=== PATIENT | female | born 1975 | race Caucasian/White ===

== ENCOUNTER 2017-07-17 13:30 | Outpatient (CLI) | payer OTHER ==
--- NOTE | 2017-07-17 15:29 | MMO ---
BILATERAL SCREENING MAMMOGRAMS: This is a baseline study. Interpreted with computer-aided detection. Heterogeneously dense glandular pattern is seen. There are a few scattered tiny punctate calcificat ions. No mass or distortion. Recommend 1-year followup. IMPRESSION: BIRADS 2: Benign Finding(s) Routine annual screening mammography (for women over age 40) POS: [facility]
== END 2017-07-17 13:31 | disposition home or self-care (01) ==
LOC: SCSMAMMO 13:30
PROVIDERS: ATTEND Family Medicine
DX: Z12.31 Encounter for screening mammogram for malignant neoplasm of breast (principal)
CPT/HCPCS: 77067; G0202

== ENCOUNTER 2018-11-24 09:54 | Outpatient (CLI) | payer OTHER ==
--- NOTE | 2018-11-24 12:12 | MMO ---
BILATERAL SCREENING MAMMOGRAM: Date: 11/24/18 INDICATION: Annual exam. COMPARISON: Prior exam dated 07/17/17. FINDINGS: Interpretation of this exam was assisted with computer-aided detection. The breast parenchyma is heterogeneously dense. No new suspicious mass, cluster of microcalcifications, or area of architectural distortion is eviden t. IMPRESSION: BIRADS 1: Negative Recommend routine annual mammographic screening. POS: [facility]
== END 2018-11-24 09:55 | disposition home or self-care (01) ==
LOC: SCSMAMMO 09:54
PROVIDERS: ATTEND Family Medicine
DX: Z12.31 Encounter for screening mammogram for malignant neoplasm of breast (principal)
CPT/HCPCS: 77067

== ENCOUNTER 2019-06-13 23:17 | Emergency (ER) | payer OTHER ==
[2019-06-13 23:53] LABS: #Basophils 0.1 thou/uL (0.0-0.2); #Eosinphils 0.2 thou/uL (0.0-0.7); #Lymphocytes 2.7 thou/uL (1.20-3.40); #Monocytes 0.7 thou/uL (0.11-0.59); #Neutrophils 5.1 thou/uL (1.40-6.50); %Basophils 0.9 % (0.0-1.0); %Eosinophils 2.5 % (0.0-10.0); %Lymphocytes 30.7 % (21.0-51.0); %Monocytes 7.7 % (0.0-10.0); %Neutrophils 58.3 % (42.0-75.0); Hemoglobin 13.6 g/dL (12.0-16.0); Mean Corpuscular HGB CONC 33.8 g/dL (32.0-36.0); Mean Corpuscular Hemoglobin 29.5 pg (27.0-31.0); Mean Corpuscular Volume 87.3 fL (78.0-98.0); Mean Platelet Volume 6.1 fL (7.4-10.4); Platelet Count 324 thou/uL (130-400); RBC Distribution Width 11.9 % (11.5-14.5); White Blood Cell (WBC) Count 8.8 thou/uL (4.8-10.8)
--- NOTE | 2019-06-13 23:55 | RAD ---
XR Chest 1 View Portable HISTORY: Chest pain COMPARISON: 11/04/2018 study. FINDINGS: Heart size and mediastinum are within normal limits. The lungs are clear of infiltrates. No significant bony findings. IMPRESSION: No active intrathoracic disease.
[2019-06-14 00:01] LABS: BHCG - Serum Negative (NEGATIVE); Pregs Control Background? CLEAR/WHITE (CLR/WHITE); Pregs Control Bar Appear? YES (CONTROL BAR)
[2019-06-14 00:10] LABS: ALT (SGPT) 14 U/L (8-55); AST (SGOT) 12 U/L (5-34); Albumin 3.9 g/dL (3.5-5.0); Alkaline Phosphatase 51 U/L (40-150); Anion Gap 13 mmol/L (10-20); BUN (Urea Nitrogen) 10 mg/dL (7.0-18.7); Bilirubin, Total 0.2 mg/dL (0.2-1.2); Calc. Creatinine Clearance 0 mL/min (70-130); Carbon Dioxide 23 mmol/L (22-29); Chloride 108 mmol/L (98-107); Estimated GFR-MDRD Greater than 90; Globulin 2.9 g/dL (2.4-3.5); Glucose 107 mg/dL (70-105); Potassium 4.2 mmol/L (3.5-5.1); Protein, Total 6.8 g/dL (6.0-8.3); Sodium 140 mmol/L (136-145)
== END 2019-06-14 02:55 | disposition home or self-care (01) ==
LOC: SCSER 23:17
DX: R07.89 Other chest pain (principal); F41.9 Anxiety disorder, unspecified; F32.9 Major depressive disorder, single episode, unspecified; Z79.899 Other long term (current) drug therapy
CPT/HCPCS: 71045; 80053; 84484; 84703; 85025; 93005

== ENCOUNTER 2021-10-27 09:27 | Outpatient (CLI) | payer OTHER | END 2021-10-27 09:28 | disposition home or self-care (01) | LOC: SCSCT 09:27 | DX: K43.9 Ventral hernia without obstruction or gangrene (principal); K42.9 Umbilical hernia without obstruction or gangrene | CPT/HCPCS: 74150 ==

== ENCOUNTER 2023-05-16 11:26 | Outpatient (CLI) | payer OTHER ==
[2023-05-16 12:47] LABS: #Basophils 0.1 10x3/uL (0.0-0.2); #Eosinphils 0.4 10x3/uL (0.0-0.5); #Monocytes 0.6 10x3/uL (0.0-1.1); #Neutrophils 6.3 10x3/uL (1.5-8.4); %Basophils 0.7 % (0.0-2.0); %Eosinophils 3.7 % (0.0-6.0); %Lymphocytes 24.5 % (18.0-47.0); %Monocytes 6.2 % (0.0-10.0); %Neutrophils 64.8 % (40.0-75.0); Hematocrit 44.9 % (34.9-44.5); Mean Corpuscular HGB CONC 33.4 g/dL (32.0-36.0); Mean Corpuscular Hemoglobin 29.4 pg (27.0-33.0); Mean Platelet Volume 8.8 fl (7.4-10.4); Platelet Count 376 10x3/uL (150-450); RBC Distribution Width 12.7 % (11.5-14.5); White Blood Cell (WBC) Count 9.7 10x3/uL (3.5-10.5)
[2023-05-16 12:59] LABS: BHCG - Serum Negative (NEGATIVE); Pregs Control Background? CLEAR/WHITE (CLR/WHITE); Pregs Control Bar Appear? YES (CONTROL BAR)
[2023-05-16 13:08] LABS: Anion Gap 13 mmol/L (10-20); BUN (Urea Nitrogen) 13 mg/dL (7.0-18.7); Calc. Creatinine Clearance 0 mL/min (70-130); Calcium 9.5 mg/dL (7.8-10.44); Carbon Dioxide 26 mmol/L (22-29); Chloride 104 mmol/L (98-107); Estimated GFR 106; Glucose 93 mg/dL (70-105); Potassium 4.3 mmol/L (3.5-5.1); Sodium 139 mmol/L (136-145)
== END 2023-05-16 11:27 | disposition home or self-care (01) ==
LOC: LABBT 11:26
PROVIDERS: ATTEND Surgery
DX: Z01.812 Encounter for preprocedural laboratory examination (principal); K43.2 Incisional hernia without obstruction or gangrene
CPT/HCPCS: 80048; 84703; 85025

== ENCOUNTER 2023-06-12 09:47 | Observation (INO) | payer OTHER ==
[2023-06-11 12:33] VITALS: BMI 30.2
[2023-06-12] MEDS ORDERED: Acetaminophen 500 MG TAB ONE (11:14)
[2023-06-12] MEDS ORDERED: Scopolamine 1.5 mg/72 hour Patch ONE (11:14)
[2023-06-12] MEDS ORDERED: fentaNYL PF 100 MCG/2 ML SYRINGE ONE (13:03)
[2023-06-12] MEDS ORDERED: Sevoflurane 250 ML INH ANEST BOTTLE ONE (13:03)
[2023-06-12] MEDS ORDERED: EPINEPHrine 1 MG/ML AMP ONE (13:04)
[2023-06-12] MEDS ORDERED: Bupivacaine 0.25% HCL 30 ML VIAL ONE (13:04)
[2023-06-12] MEDS ORDERED: Sodium Chloride 0.9% 100 ML ONE (13:13)
[2023-06-12] MEDS ORDERED: CEFAZOLIN 2 GM VIAL ONE (13:13)
[2023-06-12] MEDS ORDERED: Lidocaine 1% PF 5 ML VIAL ONE (13:25)
[2023-06-12] MEDS ORDERED: Ondansetron PF 4 MG/2 ML Vial ONE (13:25)
[2023-06-12] MEDS ORDERED: Rocuronium Bromide 10 MG/ML (10ML VIAL) ONE (13:25)
[2023-06-12] MEDS ORDERED: PROPOFOL 200 MG/20 ML VIAL ONE (13:25)
[2023-06-12] MEDS ORDERED: Ketorolac Tromethamine 30 MG/ML VIAL ONE (13:25)
[2023-06-12] MEDS ORDERED: Dexamethasone 20 MG/5 ML VIAL ONE (13:25)
[2023-06-12] MEDS ORDERED: SUGAMMADEX SODIUM 200 MG/2 ML VIAL ONE (15:08)
[2023-06-12] MEDS ORDERED: fentaNYL 50 mcg/mL 1 mL Vial ONE ×5 (16:37→19:06)
[2023-06-12] MEDS ORDERED: Promethazine HCl 25 MG/ML VIAL IM PRN (19:08)
[2023-06-12] MEDS ORDERED: hydrALAZINE 20 MG/ML VIAL SLOW IVP PRN (19:08)
[2023-06-12] MEDS ORDERED: Dextrose 50% Abboject 50 ML SYRINGE SLOW IVP PRN (19:08)
[2023-06-12] MEDS ORDERED: Dextrose 5% in Water 1,000 ML IV PRN (19:08)
[2023-06-12] MEDS ORDERED: Glucagon 1 MG/ML KIT IM PRN (19:08)
[2023-06-12] MEDS ORDERED: Ondansetron PF 4 MG/2 ML Vial IVP PRN (19:08)
[2023-06-12] MEDS ORDERED: HYDROcodone/Acetaminophen 7.5/325 mg Tablet PO PRN (19:08)
[2023-06-12] MEDS ORDERED: Ipratropium/Albuterol 3 ML NEB NEB PRN (19:08)
[2023-06-12] MEDS ORDERED: fentaNYL 50 mcg/mL 1 mL Vial SLOW IVP PRN (19:13)
[2023-06-12] MEDS: D5 1/2 NS w/20 mEq KCL 1,000 ML IV SCH (21:45)
[2023-06-12] MEDS: Famotidine 20 MG TAB PO SCH (21:45)
[2023-06-12] MEDS: Famotidine/PF 20 mg/2ml Vial SLOW IVP SCH (21:45)
[2023-06-13] MEDS: Ketorolac Tromethamine 30 MG/ML VIAL IVP PRN ×2 (05:09→12:53)
[2023-06-13] MEDS: D5 1/2 NS w/20 mEq KCL 1,000 ML IV SCH (08:10)
[2023-06-13] MEDS: Famotidine 20 MG TAB PO SCH (08:10)
[2023-06-13] MEDS ORDERED: FLUoxetine HCl 20 MG CAP PO SCH (09:00)
[2023-06-13] MEDS: Famotidine/PF 20 mg/2ml Vial SLOW IVP SCH (10:10)
[2023-06-13 13:19] VITALS: BP 94/64; TEMP 98.7
== END 2023-06-13 13:20 | disposition home or self-care (01) ==
LOC: SDC 09:47 → SURG B 17:33
PROVIDERS: ADMIT Surgery; ATTEND Surgery
PROC: 0WUF4JZ Supplement Abdominal Wall with Synthetic Substitute, Percutaneous Endoscopic Approach (ICD-10-PCS; principal; 2023-06-12)
DX: K43.9 Ventral hernia without obstruction or gangrene (principal); J45.909 Unspecified asthma, uncomplicated; F41.9 Anxiety disorder, unspecified; Z79.899 Other long term (current) drug therapy; Z88.1 Allergy status to other antibiotic agents; Z88.8 Allergy status to other drugs, medicaments and biological substances
CPT/HCPCS: 96374; 96375; 96376; A4314; C1781; G0378; J0171; J1100; J1885; J2405; J2704; J3010; J3480; J3490; S0020; S0028